=== PATIENT | female | born 1990 ===

== ENCOUNTER 2017-08-03 13:44 | Observation (INO) | payer BC, SELFPAY ==
[2017-08-03 14:20] LABS: Mean Corpuscular HGB CONC 30.1 g/dL (32.0-36.0); Mean Corpuscular Hemoglobin 20.8 pg (27.0-31.0); Mean Corpuscular Volume 69.2 fl (81.0-99.0); Mean Platelet Volume 8.6 fL (7.4-10.4); Platelet Count 474 thou/uL (130-400); RBC Distribution Width 20.7 % (11.5-14.5); Red Blood Cell (RBC) Count 2.38 mill/uL (4.20-5.40)
[2017-08-03 14:38] LABS: Anisocytosis SLIGHT = 6-15 cells (100X) (0-5/hpf); Hypochromia MODERATE=16-30 cells (100X) (0-5/hpf); MDiff Complete? YES; Microcytosis SLIGHT = 6-15 cells (100X) (0-5/hpf); PLT Morphology Comment Appears Increased; Polychromasia SLIGHT = 2-3 cells (100X) (0-2/hpf); Tear Drops SLIGHT = 2-5 cells (100X) (0-1/hpf)
[2017-08-03 14:39] LABS: #Basophils 0.1 thou/uL (0.0-0.2); #Eosinphils 0.1 thou/uL (0.0-0.7); #Lymphocytes 3.1 thou/uL (1.20-3.40); #Monocytes 0.7 thou/uL (0.11-0.59); #Neutrophils 7.1 thou/uL (1.40-6.50); %Basophils 0.8 % (0.0-1.0); %Lymphocytes 27.8 % (21.0-51.0); %Monocytes 6.4 % (0.0-10.0); %Neutrophils 64.1 % (42.0-75.0); ALT (SGPT) 21 U/L (8-55); AST (SGOT) 22 U/L (5-34); Albumin 4.4 g/dL (3.5-5.0); Alkaline Phosphatase 80 U/L (40-150); Anion Gap 13 mmol/L (10-20); BUN (Urea Nitrogen) 13 mg/dL (7.0-18.7); Bilirubin, Total 0.5 mg/dL (0.2-1.2); Calc. Creatinine Clearance 0 mL/min (70-130); Calcium 9.4 mg/dL (7.8-10.44); Carbon Dioxide 21 mmol/L (22-29); Chloride 104 mmol/L (98-107); Estimated GFR-MDRD Greater than 90; Globulin 3.6 g/dL (2.4-3.5); Glucose 107 mg/dL (70-105); Potassium 3.6 mmol/L (3.5-5.1); Sodium 134 mmol/L (136-145)
[2017-08-03] MEDS ORDERED: Acetaminophen 500 MG TAB PO PRN (16:22)
[2017-08-03] MEDS ORDERED: diphenhydrAMINE 50 MG/ML VIAL IVP PRN (23:07)
[2017-08-03] MEDS ORDERED: diphenhydrAMINE 50 MG/ML VIAL IVP SCH (23:15)
[2017-08-04] MEDS: Lactated Ringer's 1,000 ML IV SCH ×2 (00:52→00:57)
[2017-08-04 05:27] LABS: Mean Corpuscular HGB CONC 31.7 g/dL (32.0-36.0); Mean Corpuscular Hemoglobin 24.6 pg (27.0-31.0); Mean Corpuscular Volume 77.6 fl (81.0-99.0); Mean Platelet Volume 9.3 fL (7.4-10.4); Platelet Count 378 thou/uL (130-400); RBC Distribution Width 21.6 % (11.5-14.5); Red Blood Cell (RBC) Count 3.27 mill/uL (4.20-5.40)
--- NOTE | 2017-08-04 08:03 | SS ---
DATE OF ADMISSION: 08/03/2017 DATE OF DISCHARGE: 08/04/2017 ADMITTING DIAGNOSES: Symptomatic anemia and abnormal uterine bleeding. DISCHARGE DIAGNOSES: Symptomatic anemia and abnormal uterine bleeding. PROCEDURE: Blood transfusion. CONSULTATIONS: None. HOSPITAL COURSE: The patient is a 27-year-old female who was seen at an outside clinic and was noted to have symptomatic anemia with a hemoglobin of 4.5 at the outside facility. She was referred to [facility] emergency room here at [place] where her symptoms and findings were confirmed. She presented wi a hemoglobin of 5, hematocrit of 16.5, platelets of 474,000. She reported lightheadedness, shortn ess of breath and chest pressure, dizziness, extreme weakness and fatigue and dyspnea on exertion. The patient reports that she has been experiencing normal monthly periods for years and even began as expected this month in June. She had her period and then stopped bleeding for about a week and t hen her bleeding returned for about 2 to 2-1/2 weeks for the rest of the month of June and has sin ce stopped. The patient does report a history of PCOS many years ago, but that has not been a proble m. She has an outside physician who has drawn blood to evaluate for potential causes for this incide nt. PAST MEDICAL HISTORY: History of PCOS. PAST SURGICAL HISTORY: Negative. ALLERGIES: No known drug allergies. PAST SURGICAL HISTORY: Negative. MEDICATIONS: None. SOCIAL HISTORY: Denies drug, alcohol or tobacco use. REVIEW OF SYSTEMS: Patient on admission reports headache, shortness of breath, chest pressure, light headedness, recent cessation of vaginal bleeding, fatigue, dyspnea on exertion, cloudy thinking, carin ent denies fever or illness. PHYSICAL EXAMINATION: VITAL SIGNS: Blood pressure 118/68, pulse of 109, respiratory rate 20, temperature 98.4 on arrival. GENERAL: Patient appeared to be in no acute distress. She appeared lethargic and concerned. HEENT: Head is normocephalic, atraumatic. ABDOMEN: Soft. Her T-max during her stay and was noted to be 100.1. Current vital signs this morning; temperature 9 8.5, pulse of 88, blood pressure 112/53, respiratory rate is 16. Lungs are clear and heart is regula r. The patient this morning reports that she is feeling much better. She denies any shortness of breath or chest pressure. She denies any dizziness or difficulty getting to the bathroom. She says that s he feels "normal again." Repeat H&H after 2 units of packed red blood cells is 8 and 25.4, platelets 278,000. ASSESSMENT AND PLAN/DISCHARGE: The patient is a 27-year-old female who was admitted for symptomatic anemia with a history of abnormal uterine bleeding this month. Bleeding has spontaneously resolved a nd the patient has received 2 units of packed red blood cells, bringing her hemoglobin from 5 to 8. The patient is feeling much better and is without symptoms at this time. We will be discharging her home. She has an appointment with Dr. Reid at the [facility] for continued followup and eval uation.
== END 2017-08-04 09:05 | disposition home or self-care (01) ==
LOC: ERS 13:44 → 3SE 14:38
PROVIDERS: ADMIT Obstetrics & Gynecology; ATTEND Obstetrics & Gynecology
PROC: 30233N1 Transfusion of Nonautologous Red Blood Cells into Peripheral Vein, Percutaneous Approach (ICD-10-PCS; principal; 2017-08-04)
DX: D64.9 Anemia, unspecified (principal); N93.9 Abnormal uterine and vaginal bleeding, unspecified; E28.2 Polycystic ovarian syndrome; Z91.048 Other nonmedicinal substance allergy status
CPT/HCPCS: 36415; 36430; 80053; 85025; 85027; 85060; 86850; 86900; 86901; 94760; 96360; 96361; G0378; P9016